=== PATIENT | female | born 1950 | race Caucasian/White ===

== ENCOUNTER 2017-10-29 11:58 | Emergency (ER) | payer MEDICARE, BC ==
[~2017-10-29] VITALS: Ht 162.6 cm; Wt 84.0 kg
[~2017-10-29 11:58] MED LIST: THYR60TA PO
[2017-10-29] MEDS ORDERED: LABETALOL 5MG/ML, 20ML ONE (12:20)
[2017-10-29] MEDS ORDERED: LABETALOL 5MG/ML, 20ML IVPush ONE (12:30)
[2017-10-29] MEDS ORDERED: SODIUM CHLORIDE FLUSH 10ML SYR IVF ONE (12:30)
[2017-10-29 12:42] LABS: ALBUMIN 3.7 g/dL (3.4-5.0); ANION GAP 5 mmol/L (5-15); CALCIUM 9.4 mg/dL (8.5-10.1); CHLORIDE 108 mmol/L (98-107); CREATININE 0.72 mg/dL (0.55-1.02)
[2017-10-29 12:44] LABS: INTERNATIONAL NORMALIZED RATIO 0.99 (0.93-1.1); PROTHROMBIN TIME 10.3 Seconds (9.6-11.5)
[2017-10-29 12:46] LABS: TROPONIN I < 0.015 ng/mL (0.000-0.045)
[2017-10-29 13:37] VITALS: BP 156/87
== END 2017-10-29 14:03 | disposition home or self-care (01) ==
LOC: ED 14:00
DX: I10 Essential (primary) hypertension (principal); Z87.891 Personal history of nicotine dependence
CPT/HCPCS: 36415; 71045; 80048; 82040; 84484; 85610; 85730; 93005; 96374